=== PATIENT | male | born 1980 | race Caucasian/White ===

== ENCOUNTER 2018-06-30 11:34 | Emergency (ER) | payer SELFPAY ==
[~2018-06-30] VITALS: Ht 185.4 cm; Wt 90.7 kg
[~2018-06-30 11:34] MED LIST: AMOX1TAB61 PO; HYDR-3164 PO; NAPR-683 PO
[2018-06-30] MEDS ORDERED: IV NORMAL SALINE 1000ML BAG 1,000 ML IV SCH (11:49)
--- NOTE | 2018-06-30 11:53 | EKG ---
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
[2018-06-30] MEDS ORDERED: HALOPERIDOL LACTATE 5 MG/ML VIAL. IVP ONE (12:00)
[2018-06-30 12:07] LABS: BASO # 0.2 x10^3/uL (0.0-0.2); BASO % 1 % (0-3); EOS # 0.6 x10^3/uL (0.0-0.7); EOS % 4 % (0-3); HEMATOCRIT 49.8 % (39.0-53.0); HEMOGLOBIN 16.7 g/dL (13.0-17.5); LYMPH # 6.1 x10^3/uL (1.0-4.8); LYMPH % 41 % (24-48); MEAN CORPUSCULAR HEMOGLOBIN 28 pg (25-35); MEAN CORPUSCULAR HGB CONC 34 g/dL (31-37); MEAN CORPUSCULAR VOLUME 83 fL (79-100); MONO # 0.9 x10^3/uL (0.0-1.1); MONO % 6 % (0-9); NEUT # 7.2 x10^3uL (1.8-7.7); NEUT % 48 % (31-73); PLATELET COUNT 278 x10^3/uL (140-400); RED BLOOD COUNT 6.03 x10^6/uL (4.30-5.70); RED CELL DISTRIBUTION WIDTH 16.9 % (11.5-14.5)
--- NOTE | 2018-06-30 12:16 | RAD ---
Portable chest, 06/30/2018: HISTORY: Chest pain The heart size and pulmonary vascularity are normal. New bibasilar linear opacities, right greater than left, are compatible with atelectasis. No pulmonary consolidation is seen. There is no evidence of pleural fluid. There are new surgical fixation devices related to several lower ribs on the right. There are old surgical plates and screws related to the left scapula and clavicle. IMPRESSION: Bibasilar subsegmental atelectasis. Electronically signed by: Andre Ha MD (06/30/2018 12:13 PM) [facility]
[2018-06-30 12:21] LABS: CALCIUM 9.2 mg/dL (8.5-10.1); CREATININE 1.1 mg/dL (0.7-1.3); GFR 75.3; POTASSIUM 3.6 mmol/L (3.5-5.1)
[2018-06-30 12:27] LABS: ALBUMIN/GLOBULIN RATIO 0.9 (1.0-1.7); TOTAL BILIRUBIN 0.3 mg/dL (0.2-1.0); TOTAL PROTEIN 8.4 g/dL (6.4-8.2)
[2018-06-30 12:35] LABS: CREATINE KINASE 69 U/L (39-308)
[2018-06-30] MEDS ORDERED: IOHEXOL 300 MG/ML 100ML VIAL. IV ONE (12:45)
[2018-06-30] MEDS ORDERED: CONTRAST GIVEN. MC PRN (12:45)
[2018-06-30 13:14] LABS: BILIRUBIN,URINE NEGATIVE (NEG); CLARITY,URINE CLEAR; COLOR,URINE YELLOW; NITRITE,URINE NEGATIVE (NEG); PROTEIN,URINE NEGATIVE (NEG-TRACE); UROBILINOGEN,URINE 0.2 mg/dL (0.2 mg/dL)
[2018-06-30 13:20] LABS: BARBITURATES NEG (NEG); BENZODIAZEPINES NEG (NEG); CANNABINOIDS POS (NEG); COCAINE NEG (NEG); METHADONE NEG (NEG); OPIATES NEG (NEG); PHENCYCLIDINE NEG (NEG)
[2018-06-30 13:21] LABS: AMPHETAMINE/METHAMPHETAMINE NEG (NEG)
[2018-06-30 13:47] LABS: BACTERIA,URINE 0 /HPF (0-FEW); RBC,URINE 0 /HPF (0-2); WBC,URINE OCC /HPF (0-4)
--- NOTE | 2018-06-30 13:51 | RAD ---
CT of the abdomen and pelvis with contrast, 06/30/2018: HISTORY: Epigastric pain Multidetector CT imaging was performed following an IV bolus injection of iodinated contrast material. No oral contrast material was administered for this exam. There are mild to moderate streaky bibasilar opacities compatible with atelectasis and/or scarring. No pleural fluid is evident. The gallbladder is surgically absent. There are streak artifacts in the liver related to surgical fixation devices in several lower ribs on the right. No hepatic mass is evident. The pancreas is unremarkable. The spleen is of normal size. No renal or adrenal abnormality is detected. The abdominal aorta is of normal caliber. No abdominal or pelvic adenopathy is seen. Prostatic calcifications are present. There is a moderate amount stool scattered throughout the colon. A portion of the appendix is visualized and it is unremarkable. No free air or free fluid is evident in the abdomen or pelvis. IMPRESSION: 1. Increased stool throughout the colon. 2. Otherwise no acute abdominal or pelvic abnormality is detected. 3. Mild to moderate bibasilar linear atelectasis. PQRS Compliance Statement: One or more of the following individualized dose reduction techniques were utilized for this examination: 1. Automated exposure control 2. Adjustment of the mA and/or kV according to patient size 3. Use of iterative reconstruction technique Electronically signed by: Andre Ha MD (06/30/2018 1:47 PM) [facility]
[2018-06-30 14:02] VITALS: BP 156/84
[2018-06-30] MEDS ORDERED: OMEP20CA9 PO (14:32)
== END 2018-06-30 14:49 | disposition home or self-care (01) ==
LOC: ER 11:34
DX: K85.90 Acute pancreatitis without necrosis or infection, unspecified (principal); F17.210 Nicotine dependence, cigarettes, uncomplicated; F12.20 Cannabis dependence, uncomplicated; Z90.49 Acquired absence of other specified parts of digestive tract
CPT/HCPCS: 36415; 71045; 74177; 80053; 80307; 81001; 82553; 83690; 84484; 85025; 87086; 93005; 99284; J7030; Q9967

== ENCOUNTER → 2018-10-22 | Outpatient (CLI) | payer OTHER ==
[~2018-10-22] MED LIST changes: +OMEP20CA10 PO
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
== END | disposition home or self-care (01) ==
LOC: RAD 10:35
DX: S92.001A Unspecified fracture of right calcaneus, initial encounter for closed fracture (principal); M11.261 Other chondrocalcinosis, right knee; M25.561 Pain in right knee; X58.XXXA Exposure to other specified factors, initial encounter; Y93.89 Activity, other specified; Y92.89 Other specified places as the place of occurrence of the external cause; Y99.8 Other external cause status
CPT/HCPCS: 73560; 73600; 73620

== ENCOUNTER 2020-01-02 01:27 | Inpatient (IN) | payer MEDICAID ==
[~2020-01-02] VITALS: Ht 185.4 cm; Wt 86.3 kg
[~2020-01-02 01:27] MED LIST changes: -OMEP20CA10 PO; +OMEP20CA16 PO
[2020-01-02] MEDS ORDERED: IV NORMAL SALINE 1000ML BAG 1,000 ML IV SCH (01:45)
[2020-01-02] MEDS ORDERED: ONDANSETRON PF 4 MG/2 ML VIAL. IVP ONE (01:45)
[2020-01-02] MEDS: fentaNYL PF VIAL 100 MCG/2 ML VIAL IV PRN ×2 (01:48→20:59)
[2020-01-02 01:49] LABS: BASO # 0.1 x10^3/uL (0.0-0.2); BASO % 1 % (0-3); EOS # 0.4 x10^3/uL (0.0-0.7); EOS % 4 % (0-3); HEMATOCRIT 44.9 % (39.0-53.0); LYMPH # 4.8 x10^3/uL (1.0-4.8); LYMPH % 44 % (24-48); MEAN CORPUSCULAR HEMOGLOBIN 28 pg (25-35); MEAN CORPUSCULAR HGB CONC 33 g/dL (31-37); MEAN CORPUSCULAR VOLUME 85 fL (79-100); MONO # 0.9 x10^3/uL (0.0-1.1); MONO % 8 % (0-9); NEUT # 4.8 x10^3/uL (1.8-7.7); NEUT % 43 % (31-73); PLATELET COUNT 303 x10^3/uL (140-400); RED BLOOD COUNT 5.31 x10^6/uL (4.30-5.70); RED CELL DISTRIBUTION WIDTH 14.2 % (11.5-14.5)
[2020-01-02 01:59] LABS: CALCIUM 8.3 mg/dL (8.5-10.1); CREATININE 1.2 mg/dL (0.7-1.3); GFR 67.4; POTASSIUM 3.8 mmol/L (3.5-5.1)
[2020-01-02 02:01] LABS: PROTHROMBIN TIME PATIENT 12.6 SEC (11.7-14.0)
[2020-01-02 02:05] LABS: ALBUMIN 3.4 g/dL (3.4-5.0); ALBUMIN/GLOBULIN RATIO 0.8 (1.0-1.7); TOTAL BILIRUBIN 0.5 mg/dL (0.2-1.0); TOTAL PROTEIN 7.8 g/dL (6.4-8.2)
[2020-01-02] MEDS ORDERED: fentaNYL PF VIAL 100 MCG/2 ML VIAL IVP ONE (02:30)
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
[2020-01-02 03:05] LABS: BILIRUBIN,URINE NEGATIVE (NEG); CLARITY,URINE CLEAR; COLOR,URINE YELLOW; NITRITE,URINE NEGATIVE (NEG); PH,URINE 5.5 (<5.0-8.0); PROTEIN,URINE NEGATIVE (NEG-TRACE); UROBILINOGEN,URINE 0.2 mg/dL (0.2 mg/dL)
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
[2020-01-02 03:09] LABS: BACTERIA,URINE 0 /HPF (0-FEW); RBC,URINE OCC /HPF (0-2); SQUAMOUS EPITHELIAL CELL,UR FEW /LPF; WBC,URINE OCC /HPF (0-4)
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
[2020-01-02 03:10] LABS: HYALINE CASTS, URINE OCCASIONAL /HPF
[2020-01-02 03:11] LABS: BARBITURATES NEG (NEG); BENZODIAZEPINES NEG (NEG); CANNABINOIDS NEG (NEG); COCAINE NEG (NEG); METHADONE NEG (NEG); OPIATES NEG (NEG); PHENCYCLIDINE NEG (NEG)
[2020-01-02 03:12] LABS: AMPHETAMINE/METHAMPHETAMINE POS (NEG)
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
[2020-01-02] MEDS ORDERED: LIDOCAINE 2% VISCOUS 15 ML SOLUTION. MM ONE (03:15)
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
[2020-01-02] MEDS: IV NORMAL SALINE 1000ML BAG 1,000 ML IV SCH ×4 (04:00→21:12)
[2020-01-02] MEDS ORDERED: ONDANSETRON PF 4 MG/2 ML VIAL. IV PRN ×2 (04:15→16:00)
[2020-01-02] MEDS ORDERED: fentaNYL PF VIAL 100 MCG/2 ML VIAL IV PRN (04:15)
[2020-01-02 04:52] VITALS: BP 175/83
[2020-01-02 07:00] VITALS: BP 145/76
--- NOTE | 2020-01-02 07:28 | EKG ---
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
--- NOTE | 2020-01-02 09:03 | NUR ---
SW following. Discussed with RN, pt tested positive for meth. Dr. Brown would like PAT referral. RADHA contacted Gaetano Silva will come to visit with pt. RN advised physicians wanting to make sure pt does not have a brain bleed. RADHA will continue to follow. Addendum: 01/02/20 at 1313 by GUILLAUME GARCIA Gaetano met with pt. Pt was at [facility] (drug rehab) a few months ago, however did not complete the program due to COVID-19. Pt reported he used to use meth everyday and now is only using 2-3 times per week, denies it being a problem. Pt reported undiagnosed depression, some SI in the past - afraid about getting a psych eval. Gaetano explained the psych eval and medication etc, pt will consider contacting [facility] or the [facility] for mental health. Pt has been cleared by MARY ANN. RN notified.
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
[2020-01-02 11:00] VITALS: BP_SYST 130; BP_SYST 146; BP_DIAS 48; BP_DIAS 80
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
[2020-01-02 15:00] VITALS: BP 139/82
[2020-01-02] MEDS ORDERED: cloNIDine HCL 0.1 MG TABLET PO PRN (16:00)
[2020-01-02] MEDS ORDERED: LORazepam 0.5 MG TABLET PO PRN (16:00)
[2020-01-02] MEDS ORDERED: MAG HYDROX/ALUMINUM HYD/SIMETH 30 ML ORAL.SUSP PO PRN (16:00)
[2020-01-02] MEDS ORDERED: ZOLPIDEM 5 MG TABLET. PO PRN (16:00)
[2020-01-02] MEDS ORDERED: SODIUM PHOSPHATES 19/7GM 133 ML ENEMA. PR PRN (16:00)
[2020-01-02] MEDS ORDERED: guaiFENesin ORAL 200 MG/10 ML LIQUID. PO PRN (16:00)
[2020-01-02] MEDS ORDERED: 0.9 % SODIUM CHLORIDE 10 ML DISP.SYRIN. IV PRN (16:00)
[2020-01-02] MEDS ORDERED: ACETAMINOPHEN 325 MG TABLET. PO PRN (16:00)
[2020-01-02] MEDS ORDERED: DOCUSATE SODIUM 100 MG CAPSULE. PO PRN (16:00)
[2020-01-02] MEDS ORDERED: ALBUTEROL SULFATE 2.5 MG/3 ML NEBU. NEB PRN (16:00)
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
[2020-01-02 19:00] VITALS: BP 174/81
[2020-01-02] MEDS: NEOMY/BACITR/POLYMYXIN OINT PACKET. TP SCH (20:59)
[2020-01-02] MEDS ORDERED: ENOXAPARIN 40 MG/0.4 ML SYRINGE. SQ SCH (21:00)
[2020-01-02 23:00] VITALS: BP 173/97
[2020-01-03 03:00] VITALS: BP 150/75
[2020-01-03 07:00] VITALS: BP 146/80
[2020-01-03 07:25] LABS: BASO % 0 % (0-3); EOS # 0.3 x10^3/uL (0.0-0.7); EOS % 2 % (0-3); HEMATOCRIT 42.9 % (39.0-53.0); HEMOGLOBIN 14.2 g/dL (13.0-17.5); LYMPH # 2.8 x10^3/uL (1.0-4.8); LYMPH % 21 % (24-48); MEAN CORPUSCULAR HEMOGLOBIN 28 pg (25-35); MEAN CORPUSCULAR HGB CONC 33 g/dL (31-37); MEAN CORPUSCULAR VOLUME 85 fL (79-100); MONO # 1.2 x10^3/uL (0.0-1.1); MONO % 9 % (0-9); NEUT # 8.8 x10^3/uL (1.8-7.7); NEUT % 67 % (31-73); PLATELET COUNT 257 x10^3/uL (140-400); RED BLOOD COUNT 5.08 x10^6/uL (4.30-5.70); RED CELL DISTRIBUTION WIDTH 14.1 % (11.5-14.5); WHITE BLOOD COUNT 13.2 x10^3/uL (4.0-11.0)
[2020-01-03 07:37] LABS: CALCIUM 7.7 mg/dL (8.5-10.1); CREATININE 0.8 mg/dL (0.7-1.3); GFR 107.6
[2020-01-03] MEDS: IV NORMAL SALINE 1000ML BAG 1,000 ML IV SCH ×2 (08:37→08:39)
[2020-01-03] MEDS: NEOMY/BACITR/POLYMYXIN OINT PACKET. TP SCH (08:38)
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
--- NOTE | 2020-01-03 10:14 | NUR ---
SW following. Discussed with RN, pt has been cleared by PAT, ambulating with therapy. Pt's WBC up today. SW awaiting confirmation of whether pt can discharge home today. SW will continue to follow.
[2020-01-03 11:00] VITALS: BP 138/75
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
[2020-01-03] MEDS ORDERED: ACET325T9 PO (13:33)
[2020-01-03] MEDS ORDERED: DOCU-153 PO (13:33)
[2020-01-03] MEDS ORDERED: NEOM1OIN6 TP (13:33)
[2020-01-03] MEDS ORDERED: CEPH250C PO (13:33)
--- NOTE | 2020-01-03 13:34 | DISCH ---
DISCHARGE INSTRUCTIONS Condition on Discharge Condition on Discharge: Stable Activity After Discharge Activity Instructions for Disc: Activity as tolerated Bathing Instructions: Shower-keep dressing dry Lifting Instructions after Dis: No heavy lifting, No pulling or pushing, Do not lift >10 pounds, Add. restrict see below Exercise Instruction after Dis: Progress as tolerated Driving Instructions after Dis: Do not drive today Weight Bearing Status after Di: Full weight bearing, As tolerated Diet after Discharge Diet after Discharge: Regular Diet Texture: Regular Liquid Texture: Thin Liquid Swallowing Supervision: None needed Wound Incision Care Wound/Incision Care: Keep wound/cast CDI Wound Care Equipment: Dressings Contacting the DRShanique after DC Call your doctor for: If your condition worsens Treatment/Equipment after DC Adaptive Equipment Issued: None Warfarin Follow-Up Warfarin Follow UP: see wound clinic this thursday STIVEN MANDEL MD Jan 03, 2020 13:34
--- NOTE | 2020-01-03 14:50 | NUR ---
Discharge Note: MICHELA VILA [place] [facility] Discharge instructions and discharge home medications reviewed with Patient and a copy given. All questions have been answered and understanding verbalized. The following instructions and handouts were given: information about follow up appointments, wound care, medications/pick up man, etc. Discontinued lines and drains: IV line in right hand and left upper arm removed, catheter tip intact. Patient discharged to home with self care with girlfriend, wheelchair used for mobility to discharge vehicle.
[2020-01-03] MEDS ORDERED: CEPHALEXIN 250 MG CAPSULE. PO SCH (17:00)
== END 2020-01-03 14:50 | disposition home or self-care (01) | DRG 605 ==
LOC: ER 01:27 → 4 NORTH 04:20
PROVIDERS: ADMIT Internal Medicine; ATTEND Internal Medicine
DX: S50.11XA Contusion of right forearm, initial encounter (principal); S00.01XA Abrasion of scalp, initial encounter; S09.90XA Unspecified injury of head, initial encounter; F15.10 Other stimulant abuse, uncomplicated; R07.89 Other chest pain; F12.90 Cannabis use, unspecified, uncomplicated; F17.210 Nicotine dependence, cigarettes, uncomplicated; Y92.410 Unspecified street and highway as the place of occurrence of the external cause; Z82.5 Family history of asthma and other chronic lower respiratory diseases; Z90.49 Acquired absence of other specified parts of digestive tract; Z79.899 Other long term (current) drug therapy; V89.2XXA Person injured in unspecified motor-vehicle accident, traffic, initial encounter; Y93.89 Activity, other specified; Y92.89 Other specified places as the place of occurrence of the external cause; Y99.8 Other external cause status
CPT/HCPCS: 36415; 70450; 70486; 71045; 71260; 72125; 72128; 72131; 73030; 73080; 73110; 73590; 73610; 74177; 80048; 80053; 80307; 81001; 83690; 85025; 85610; 85730; 86850; 86900; 86901; 93005; 96361; 96374; 96375; G0480; J1650; J2405; J3010; J7030; 99285-25; G0378